=== PATIENT | male | born 1980 ===

== ENCOUNTER 2018-05-13 15:38 | Emergency (ER) | payer OTHER ==
[~2018-05-13] VITALS: Ht 177.8 cm; Wt 138.3 kg
[~2018-05-13 15:38] MED LIST: DOLOGESIC CAPLE1 TAB PO
== END 2018-05-13 17:21 | disposition home or self-care (01) ==
LOC: ER 15:38
DX: B34.9 Viral infection, unspecified (principal)

== ENCOUNTER → 2018-05-21 08:53 | Outpatient (CLI) | payer OTHER | END | disposition home or self-care (01) | LOC: LAB 08:53 | DX: I10 Essential (primary) hypertension (principal) ==

== ENCOUNTER 2018-05-21 10:30 | Outpatient (CLI) | payer OTHER | END 2018-05-21 10:38 | disposition home or self-care (01) | LOC: EKG 10:30 | DX: I10 Essential (primary) hypertension (principal) ==